=== PATIENT | female | born 1970 | race Caucasian/White ===

== ENCOUNTER → 2016-07-18 | Outpatient (CLI) | payer OTHER ==
[~2016-07-18] MED LIST: BCPILLS PO; CIPR-255 PO; HYDR-5688 PO; METR-163 PO; MINO100C22 PO; ONDA4TAB10 SL; SPIR50TA2 PO
--- NOTE | 2016-07-18 16:36 | MAMMOGRAPHY REPORT ---
BILATERAL DIGITAL SCREENING MAMMOGRAM TOMOSYNTHESIS WITH CAD: 07/18/2016 CLINICAL HISTORY: Routine screening. Patient has no complaints. TECHNIQUE: Breast tomosynthesis in addition to standard 2D mammography was performed. Current study was also evaluated with a Computer Aided Detection (CAD) system. COMPARISON: Comparison is made to exams dated: 09/06/2014 mammogram - [facility], mammogram, and 07/06/2013 mammogram - [facility]. BREAST COMPOSITION: The tissue of both breasts is heterogeneously dense, which may obscure small ma sses. FINDINGS: No suspicious masses, calcifications, or areas of architectural distortion are noted in e ither breast. There has been no significant interval change compared to prior exams. IMPRESSION: ACR BI-RADS CATEGORY 1: NEGATIVE There is no mammographic evidence of malignancy. A 1 year screening mammogram is recommended. The p atient will receive written notification of the results. Approximately 10% of breast cancers are not detected with mammography. A negative mammographic repor t should not delay biopsy if a clinically suggestive mass is present. Arianna Giles M.D. ah/:07/18/2016 15:28:03 Design Maintenance Engineer: Micheal Bah RT(R)(M), [facility] letter sent: Normal 1/2 BI-RADS Code: ACR BI-RADS Category 1: Negative
== END | disposition home or self-care (01) ==
LOC: C.MAMM 14:58
PROVIDERS: ATTEND Family Medicine
DX: Z12.31 Encounter for screening mammogram for malignant neoplasm of breast (principal)

== ENCOUNTER 2016-08-13 19:19 | Emergency (ER) | payer OTHER ==
[~2016-08-13] VITALS: Ht 162.6 cm; Wt 65.9 kg
[~2016-08-13 19:19] MED LIST changes: -CIPR-255 PO; -HYDR-5688 PO; -METR-163 PO; -MINO100C22 PO; -ONDA4TAB10 SL
[2016-08-13 19:23] VITALS: Ht 162.6 cm; Wt 65.9 kg
[2016-08-13] MEDS ORDERED: ONDANSETRON INJ 2 MG/ML 2 ML VIAL IV STA (19:42)
[2016-08-13] MEDS ORDERED: SODIUM CHLORIDE 0.9% 1000ML 1,000 ML IV STA ×2 (19:42)
[2016-08-13] MEDS ORDERED: OPTIRAY 320 IV PRN (20:00)
[2016-08-13 20:16] LABS: BASO % 0.2 %; BASO ABS # 0.02 K/uL (0-0.2); COMPLETE YES; EOS % 0.8 %; HEMATOCRIT 36.1 % (37-47); IG% 0.2 %; LYMPH % 14.1 %; LYMPH ABS # 1.29 K/uL (1.2-3.4); MEAN CORPUSCULAR HEMOGLOBIN 30.2 pg (25-34); MEAN CORPUSCULAR HGB CONC 34.3 g/dl (32-36); MEAN PLATELET VOLUME 10.3 fL (7.4-10.4); MONO % 8.2 %; NEUT % 76.5 %; PLATELET COUNT 261 K/uL (130-400); WHITE BLOOD COUNT 9.17 K/uL (4.8-10.8)
[2016-08-13 20:34] LABS: BUN/CREATININE RATIO 14.4 (10-20); CALCIUM 8.6 mg/dl (8.5-10.1); CREATININE 0.83 mg/dl (0.60-1.20); POTASSIUM 4.1 mmol/L (3.5-5.1)
[2016-08-13 20:37] LABS: ALB/GLOB RATIO 0.9 (0.9-2)
[2016-08-13] MEDS ORDERED: MINO100C22 PO (20:42)
--- NOTE | 2016-08-13 21:17 | DIAGNOSTIC IMAGING REPORT ---
ABDOMEN AND PELVIS CT WITH IV CONTRAST CT DOSE: 518.37 mGycm HISTORY: Pain. LEFT ABD PAIN, HX OF DIVERTICULITIS TECHNIQUE: Multiaxial CT images of the abdomen and pelvis were performed following the use of intravenous contrast. COMPARISON STUDY: 08/22/2014 FINDINGS: Lung bases are clear. Liver spleen and pancreas are unremarkable. Kidneys are negative for hydronephrosis. Prior cholecystectomy. Upper abdominal bowel pattern is unremarkable. There are findings of edematous change of the wall of the descending colon. This is seen primarily in the proximal to mid descending colon. There is most consistent with that of acute diverticulitis. There are bilateral ovarian cysts with small amount of free fluid within the pelvic cul-de-sac. On the right cyst measures 2.9 cm and on the left 3.2 cm. Bladder is midline. IMPRESSION: 1. Acute proximal to mid descending colonic diverticulitis. 2. Moderate pericolonic infiltrative change 3. No evidence for abscess collection or obstruction. 4. Bilateral ovarian cyst. Electronically signed by: Deep Smith M.D. 08/13/2016 9:15 PM Dictated Date/Time: 08/13/2016 9:07 PM
[2016-08-13] MEDS ORDERED: METRONIDAZOLE 250 MG TAB PO STA (21:40)
[2016-08-13] MEDS ORDERED: NORCO 5/325MG HOME PACK PO ONE (21:45)
[2016-08-13] MEDS ORDERED: HYDR-5688 PO (21:45)
[2016-08-13] MEDS ORDERED: METR-163 PO (21:45)
[2016-08-13] MEDS ORDERED: ONDA4TAB10 SL (21:45)
[2016-08-13] MEDS ORDERED: ONDANSETRON HOME PACK 4MG OD TAB PO ONE (21:45)
[2016-08-13] MEDS ORDERED: CIPROFLOXACIN 500MG HOME PACK PO ONE (21:45)
[2016-08-13] MEDS ORDERED: CIPR-255 PO (21:45)
--- NOTE | 2016-08-13 21:45 | EMERGENCY ROOM VISIT NOTE ---
History First contact with patient: 19:29 Chief Complaint: ABDOMINAL PAIN Stated Complaint: ABD PAIN,HX OF DIVERTICULITIS History of Present Illness Patient is a 45-year-old white female who presents emergency department for evaluation of left-sided abdominal pain 3-4 days. Patient has a history of diverticulitis and states that this feels similar. She states that she went for a headache on Thursday 3 days ago, that evening, she noted that she felt a little bloated, and thought that she could be constipated and a little dehydrated. She tried increasing her fluid intake and taking MiraLAX. She has subsequently had several bowel movements, last was last evening. She reports they were formed and brown without blood or melena. She denies any mucus. She states that the pain has progressively worsened. It is located primarily in the left midabdomen, but radiates across to the right. She feels better when she is laying still, and worse when she moves or bends over. She rates her discomfort a 7/10. She denies any fevers. No nausea or vomiting. Last menstrual period was 07/28 and was normal per the patient. She denies any urinary symptoms. She has had 2 prior episodes of diverticulitis, her last was in 2014. She has never had a colonoscopy. Review of Systems Review of systems as per HPI. All other systems reviewed were negative. 10 systems reviewed. Past Medical/Surgical History Medical Problems: (1) Diverticulitis (2) Diverticulosis (3) Scalp contusion (4) Vasovagal syncope (5) Vasovagal syncope Electronic medical records are reviewed and summarized as above/below. See Problem List. Social History Smoking Status: Never Smoker Alcohol Use: occasionally Housing Status: lives with family Occupation Status: employed Current/Historical Medications Scheduled Ciprofloxacin Hcl (Cipro), 500 MG PO BID Metronidazole (Flagyl), 500 MG PO BID Spironolactone (Aldactone), 50 MG PO BID Scheduled PRN Hydrocodone/Acetaminophen 5MG/325MG ([place] 5MG/325MG), 1-2 TABLETS PO Q4 PRN for Pain Minocycline (Minocin), 100 MG PO DAILY PRN for BREAKOUT Ondasetron Odt (Zofran Odt), 4 MG SL Q6H PRN for Nausea or Vomiting Allergies Coded Allergies: No Known Allergies (Unverified , 08/13/16) Physical Exam Vital Signs Date Time Temp Pulse Resp B/P Pulse Ox O2 Delivery O2 Flow Rate FiO2 08/13/16 21:29 86 18 136/72 99 Room Air 08/13/16 19:23 37.1 72 18 119/81 98 Room Air Physical Exam CONSTITUTIONAL: Patient is a pleasant, well-appearing 45-year-old white female who is awake and alert and in no acute distress. EYES: Pupils equal, round, reactive to light and accommodation. EOMs intact without nystagmus. Sclera are anicteric. ENT: Tympanic membranes intact, with normal landmarks. External canals are clear. Oral and nasopharynx are clear. Mucous membranes are moist, no lesions , tongue and gums appear normal. CARDIOVASCULAR: Regular rate and rhythm, with normal S1 and S2, no murmur or gallop or rub is heard. No carotid bruits auscultated. No JVD. Peripheral pulses easily palpable. RESPIRATORY: Breath sounds equal and clear to auscultation without wheezes, rales, or rhonchi heard. Full and equal chest expansion without accessory muscle use or retractions. ABDOMEN: Bowel sounds are present. Abdomen is soft, nondistended, tender to percussion and palpation in the left midabdomen without guarding, rebound or rigidity. There is no pain in the right lower quadrant over McBurney's point. INTEGUMENTARY: No lesions or rash, normal skin turgor. LYMPH: No lymphadenopathy. Medical Decision & Procedures ER Provider Diagnostic Interpretation: ABDOMEN AND PELVIS CT WITH IV CONTRAST CT DOSE: 518.37 mGycm HISTORY: Pain. LEFT ABD PAIN, HX OF DIVERTICULITIS TECHNIQUE: Multiaxial CT images of the abdomen and pelvis were performed following the use of intravenous contrast. COMPARISON STUDY: 08/22/2014 FINDINGS: Lung bases are clear. Liver spleen and pancreas are unremarkable. Kidneys are negative for hydronephrosis. Prior cholecystectomy. Upper abdominal bowel pattern is unremarkable. There are findings of edematous change of the wall of the descending colon. This is seen primarily in the proximal to mid descending colon. There is most consistent with that of acute diverticulitis. There are bilateral ovarian cysts with small amount of free fluid within the pelvic cul-de-sac. On the right cyst measures 2.9 cm and on the left 3.2 cm. Bladder is midline. IMPRESSION: 1. Acute proximal to mid descending colonic diverticulitis. 2. Moderate pericolonic infiltrative change 3. No evidence for abscess collection or obstruction. 4. Bilateral ovarian cyst. Laboratory Results 08/13/16 20:00 Red Blood Count 4.10, Mean Corpuscular Volume 88.0, Mean Corpuscular Hemoglobin 30.2, Mean Corpuscular Hemoglobin Concent 34.3, Mean Platelet Volume 10.3, Neutrophils (%) (Auto) 76.5, Lymphocytes (%) (Auto) 14.1, Monocytes (%) (Auto) 8.2, Eosinophils (%) (Auto) 0.8, Basophils (%) (Auto) 0.2, Neutrophils # (Auto) 7.02, Lymphocytes # (Auto) 1.29, Monocytes # (Auto) 0.75, Eosinophils # (Auto) 0.07, Basophils # (Auto) 0.02 08/13/16 20:00 Test 08/13/16 20:00 White Blood Count 9.17 K/uL (4.8-10.8) Red Blood Count 4.10 M/uL (4.2-5.4) Hemoglobin 12.4 g/dL (12.0-16.0) Hematocrit 36.1 % (37-47) Mean Corpuscular Volume 88.0 fL (80-100) Mean Corpuscular Hemoglobin 30.2 pg (25-34) Mean Corpuscular Hemoglobin Concent 34.3 g/dl (32-36) Platelet Count 261 K/uL (130-400) Mean Platelet Volume 10.3 fL (7.4-10.4) Neutrophils (%) (Auto) 76.5 % Lymphocytes (%) (Auto) 14.1 % Monocytes (%) (Auto) 8.2 % Eosinophils (%) (Auto) 0.8 % Basophils (%) (Auto) 0.2 % Neutrophils # (Auto) 7.02 K/uL (1.4-6.5) Lymphocytes # (Auto) 1.29 K/uL (1.2-3.4) Monocytes # (Auto) 0.75 K/uL (0.11-0.59) Eosinophils # (Auto) 0.07 K/uL (0-0.5) Basophils # (Auto) 0.02 K/uL (0-0.2) RDW Standard Deviation 41.8 fL (36.4-46.3) RDW Coefficient of Variation 12.9 % (11.5-14.5) Immature Granulocyte % (Auto) 0.2 % Immature Granulocyte # (Auto) 0.02 K/uL (0.00-0.02) Anion Gap 8.0 mmol/L (3-11) Est Creatinine Clear Calc Drug Dose 80.0 ml/min Estimated GFR () 98.7 Estimated GFR (Non- 85.2 BUN/Creatinine Ratio 14.4 (10-20) Calcium Level 8.6 mg/dl (8.5-10.1) Total Bilirubin 0.7 mg/dl (0.2-1) Aspartate Amino Transf (AST/SGOT) 15 U/L (15-37) Alanine Aminotransferase (ALT/SGPT) 31 U/L (12-78) Alkaline Phosphatase 53 U/L (45-117) Total Protein 7.3 gm/dl (6.4-8.2) Albumin 3.4 gm/dl (3.4-5.0) Globulin 3.9 gm/dl (2.5-4.0) Albumin/Globulin Ratio 0.9 (0.9-2) Lipase 132 U/L (73-393) Medications Administered Medications (Trade) Dose Ordered Sig/Edmar Route Start Time Stop Time Status Last Admin Dose Admin Sodium Chloride 1,000 ml @ 999 mls/hr Q1H1M STAT IV 08/13/16 19:42 08/13/16 20:42 DC 08/13/16 19:42 999 MLS/HR Sodium Chloride (Nss 1000ml) 1,000 ml @ 250 mls/hr Q4H STAT IV 08/13/16 19:42 08/13/16 23:41 08/13/16 19:42 250 MLS/HR Ondansetron HCl (Zofran Inj) 4 mg NOW STAT IV 08/13/16 19:42 08/13/16 19:44 DC 08/13/16 20:38 4 MG ED Course The patient was seen and evaluated as above. Her old records are reviewed. IV access was obtained and the patient was hydrated with normal saline solution and medicated with Zofran. She declined any medication for discomfort. CBC with differential, CMP, lipase, urine dip and urine test were performed. Given her history of diverticulitis, CT scan was performed. Laboratory studies noted a normal white count at 9100. No left shift or bandemia. H&H is normal. Electrolytes, renal functions, liver functions and lipase are all completely within normal limits. Urine dip was cleaned and test was negative. CT scan noted acute proximal to mid descending colonic diverticulitis with moderate pericolonic infiltrative change. No evidence for abscess or perforation. Bilateral ovarian cysts were noted. All laboratory and diagnostic imaging studies were discussed with the patient. Conservative care measures were discussed. Patient was in agreement. She'll be placed on Cipro and Flagyl and was given her first doses here in the emergency department. She was given [place] and Zofran to use for pain. She was instructed on the worrisome signs or symptoms for which she should return to the emergency department. Differential diagnoses entertained included UTI, pyelonephritis, renal colic, ovarian cyst, ovarian torsion, diverticulitis, bowel section, perforation, abscess, among others. Medical Decision See ED Course. Impression Primary Impression: Acute diverticulitis Departure Information Prescriptions Hydrocodone/Acetaminophen 5MG/325MG ([place] 5MG/325MG) Tab 1-2 TABLETS PO Q4 Y for Pain, #15 TAB For Initial Treatment Prov: Nancie Fox PA 08/13/16 Ondasetron Odt (ZOFRAN ODT) 4 Mg Tab 4 MG SL Q6H Y for Nausea or Vomiting, #20 TAB Prov: Nancie Fox PA 08/13/16 Metronidazole (Flagyl) 500 Mg Tab 500 MG PO BID, #20 TAB Prov: Nancie Fox PA 08/13/16 Ciprofloxacin Hcl (CIPRO) 500 Mg Tab 500 MG PO BID, #20 TAB Prov: Nancie Fox PA 08/13/16 Referrals Marisa Field DO (PCP) Patient Instructions My [facility] Additional Instructions Hydrocodone/Acetaminophen ([place]) 5/325 mg: Take 1-2 pills every four hours for breakthrough pain. Avoid alcohol, operating machinery or dangerous equipment, working on ladders or roofs, DRIVING, or situations where being under the influence may be dangerous. It is recommended to use an [id number] stool softener such as Colace, 100mg twice daily while taking this medication to avoid constipation. Ciprofloxacin(Cipro) 500mg: Take one pill twice daily for 10 days for your bowel infection. All antibiotics can cause diarrhea. If this occurs and you feel worse or it does not resolve in 1-2 days follow up with your doctor or return to the Emergency Department as this could be signs of serious underlying problems. If you experience any pain in your tendons/joints or any tendon injury return to the ER for re-evaluation. Any medication can cause an allergic reaction, stop the pills immediately and return to the ER for rash, hives, breathing difficulties, or swelling. Metronidazole(Flagyl) 500mg: Take one pill twice daily for 10 days for your bowel infection. DO NOT drink alcohol or take alcohol containing products with this medication. Any medication can cause an allergic reaction, stop the pills immediately and return to the ER for rash, hives, breathing difficulties, or swelling. Ibuprofen(Motrin, Advil) may be used for fever or pain. Use 600mg every six hours as needed. Take with food. Avoid using more than 2400mg in a 24 hour period. Do not use 2400mg per day for more than three consecutive days without physician direction. Prolonged inappropriate use can lead to stomach upset or ulcers. This is available over the counter and typically comes in 200mg tablets. (AND/OR) Acetaminophen(Tylenol) may be used for fever or pain. Use 1000mg every eight hours as needed. Avoid using more than 3000mg in a 24 hour period. This is available over the counter. Zofran(odansetron) tablets 4mg: Take one and allow it to dissolve in your mouth every four hours as needed for nausea or vomiting. Read all the package inserts or medication information paperwork provided. If you have any questions or concerns call your primary provider, pharmacist or the ER for assistance. Rest and drink plenty of fluids as tolerated. Slow sips of water or sports drinks are recommended instead of large amounts all at once. Continue current medications. Once your stomach is settled start with a clear liquid diet (jello, soup broth, etc.) and then advance as tolerated. You should avoid full, heavy meals for about 24 hrs from the time your symptoms resolved. Return to the ER immediately for worsening or persistent abdominal pain, vomiting, fevers, chest pains, difficulty breathing, black or bloody stools, worsening of your condition, or as needed. Follow up with your primary physician in 2-3 days for a recheck of your current condition.
[2016-08-13 22:22] VITALS: BP 136/72; PULSE 86; TEMP 37.1; O2SAT 99
== END 2016-08-13 22:22 | disposition home or self-care (01) ==
LOC: C.EDB 19:20 → C.EDC 22:22
DX: K57.92 Diverticulitis of intestine, part unspecified, without perforation or abscess without bleeding (principal); K57.90 Diverticulosis of intestine, part unspecified, without perforation or abscess without bleeding; N83.201 Unspecified ovarian cyst, right side; N83.202 Unspecified ovarian cyst, left side; Z87.828 Personal history of other (healed) physical injury and trauma

== ENCOUNTER → 2016-09-02 | Outpatient (CLI) | payer OTHER ==
[~2016-09-02] MED LIST changes: -BCPILLS PO; +CIPR-255 PO; +HYDR-5688 PO; +METR-163 PO; +MINO100C22 PO; +ONDA4TAB10 SL
== END | disposition home or self-care (01) ==
LOC: EDBD 13:37 → MERGE 13:37 → C.PAPS 13:37
PROVIDERS: ATTEND Physician Assistant
DX: Z12.4 Encounter for screening for malignant neoplasm of cervix (principal)

== ENCOUNTER → 2016-12-08 | Day surgery (SDC) | payer OTHER ==
[2016-11-17 14:02] VITALS: Ht 161.3 cm; Wt 63.6 kg
[2016-12-04 17:26] LABS: BASO % 0.3 %; BASO ABS # 0.02 K/uL (0-0.2); COMPLETE YES; EOS % 1.5 %; IG% 0.2 %; LYMPH % 38.1 %; MEAN CELL VOLUME 92.2 fL (80-100); MEAN CORPUSCULAR HGB CONC 33.6 g/dl (32-36); MEAN PLATELET VOLUME 9.6 fL (7.4-10.4); MONO % 5.6 %; NEUT % 54.3 %; PLATELET COUNT 320 K/uL (130-400); RED BLOOD COUNT 4.23 M/uL (4.2-5.4); WHITE BLOOD COUNT 6.57 K/uL (4.8-10.8)
[~2016-12-08] VITALS: Ht 161.3 cm; Wt 63.6 kg
[~2016-12-08] MED LIST changes: +ATROPINE SULFATE 0.1 MG/ML 5ML SYR IV PRN; -CIPR-255 PO; +DEXAMETHASONE SOD INJ 4 MG/ML VIAL ONE; +EpHEDrine SULFATE INJ 50 MG/ML AMP IV PRN; +FENTANYL CITRATE INJ 50 MCG/1 ML 2 ML VIAL IV PRN; +FENTANYL CITRATE INJ 50 MCG/1 ML 2 ML VIAL ONE; -HYDR-5688 PO; +KETOROLAC TROMETHAMINE 30 MG/ML VIAL ONE; +LACTATED RINGER'S 1000ML 1,000 ML IV SCH; +LIDOCAINE HCL 2% 2 ML VIAL (20MG/ML) ONE; -METR-163 PO; +MIDAZOLAM HCL 1 MG/ML 2ML VIAL ONE; -ONDA4TAB10 SL; +ONDANSETRON INJ 2 MG/ML 2 ML VIAL IV PRN; +ONDANSETRON INJ 2 MG/ML 2 ML VIAL ONE; +OXYCODONE/ACETAMINOPHEN 5-325 TAB PO PRN; +PROMETHAZINE HCL INJ 25 MG in SODIUM CHLORIDE 0.9% 50ML 50 ML IV PRN; +PROMETHAZINE HCL INJ 6.25 MG in SODIUM CHLORIDE 0.9% 50ML 50 ML IV PRN; +PROPOFOL IV EMULSION 10 MG/ML 20 ML VIAL IV ONE; +SODIUM CHLORIDE 0.9% 1000ML 1,000 ML IV SCH
--- NOTE | 2016-12-08 07:48 | History & Physical Bridge - SC ---
H&P Re-Evaluation Bridge Note: I have examined the patient, reviewed the History & Physical and in the interval since the performance of the History & Physical I have noted the following changes of clinical significance: No changes noted
--- NOTE | 2016-12-08 08:34 | [facility] Post Operative Brief Note ---
Immediate Operative Summary Operative Date Dec 08, 2016. Pre-Operative Diagnosis Endometrial Polyp Post-Operative Diagnosis Same Procedure(s) Performed Dilatation And Curettage, Hysteroscopy, Polypectomy with Myosure Surgeon Dr Akers Cord Splicer Surgeon(s) None Estimated Blood Loss 5ml Findings Uterus sounded to 8cm. Bilateral tubal ostia visualized. Endometrial polyp on posterior wall. Specimens A: Myosure Specimen & Endometrial Currettings Drains bladder drained prior to procedure Anesthesia general Complication(s) None Disposition Recovery Room / PACU
--- NOTE | 2016-12-08 08:37 | Discharge Instructions-SurgCtr ---
Discharge Instructions Date of Service Dec 08, 2016. Visit Reason for Visit: Endometrial Polyp Discharge Discharge Diagnosis / Problem: removal of endometrial polyp Discharge Goals Goal(s): Diagnostic testing, Therapeutic intervention Activity Recommendations Activity Limitations: per Instructions/Follow-up section Anesthesia . Post Anesthesia Instructions: If you have had General Anesthesia or IV Sedation: * Do not drive today. * Resume driving when surgeon permits. * Do not make important decisions or sign legal documents today. * Call surgeon for: 1. Temperature elevations greater than 101 degrees F. 2. Uncontrollable pain. 3. Excessive bleeding. 4. Persistent nausea and vomiting. 5. Medication intolerance (nausea, vomiting or rash). * For nausea and vomiting use only clear liquids such as: tea, soda, bouillon until nausea subsides, then gradually increase diet as tolerated. * If you have any concerns or questions, call your surgeon's office. If physician is unavailable and it is an emergency, call 911 or go to the nearest emergency room. . Instructions / Follow-Up Instructions / Follow-Up ACTIVITY RECOMMENDATIONS: * Avoid tampons, douching, hot tubs, pools, and intercourse until bleeding has stopped. * May shower as usual. * No strenuous activity for 24-48 hours. After 24-48 hours, you may do anything you feel like doing (driving and sports are okay). SPECIAL CARE INSTRUCTIONS: Special Diet: * Mild nausea may occur in the immediate post-operative period. * Take clear liquids such as tea, cola or bouillon until all nausea has subsided; you may then resume your normal diet. Special Care: * Light bleeding and vaginal spotting can last from a few days to 3-4 weeks. Call your doctor if bleeding becomes heavier than the heaviest part of your period. * Check your temperature twice a day for one week. If it goes above 100.4 degrees Fahrenheit (38.0 Celsius), notify your doctor. * Call your doctor's office for an appointment for 6 weeks after your surgery. FOLLOW-UP VISIT: Call your doctor's office for an appointment for 6 weeks after your surgery. Diet Recommendations Home Diet: resume previous diet Procedures Procedures Performed: Dilatation And Curettage, Hysteroscopy, Polypectomy with Myosure Pending Studies Studies pending at discharge: yes List of pending studies: pathology of endometrial curettings Medical Emergencies . Who to Call and When: Medical Emergencies: If at any time you feel your situation is an emergency, please call 911 immediately. . Non-Emergent Contact Non-Emergency issues call your: Primary Care Provider, [facility] . . "Provider Documentation" section prepared by Yue Akers. .
[2016-12-08 09:15] VITALS: TEMP 36.4
--- NOTE | 2016-12-08 09:33 | Anesthesia Progress Nt - [facility] ---
Anesthesia Post Op Note Date & Time Dec 08, 2016 at 09:33 Vital Signs Pain Intensity: 1 Vital Signs Past 12 Hours Date Time Temp Pulse Resp B/P (MAP) Pulse Ox O2 Delivery O2 Flow Rate FiO2 12/08/16 09:15 36.4 50 20 144/83 (103) 100 Room Air 12/08/16 09:10 130/86 12/08/16 09:09 58 12 12/08/16 09:09 57 12 97 12/08/16 09:08 63 13 12/08/16 09:08 65 13 97 12/08/16 09:07 36.8 98 Room Air 12/08/16 09:05 130/79 12/08/16 09:03 61 13 97 12/08/16 09:03 62 13 12/08/16 09:01 130/73 12/08/16 08:58 64 14 12/08/16 08:58 63 14 100 12/08/16 08:57 64 19 12/08/16 08:57 64 19 100 12/08/16 08:57 64 19 12/08/16 08:57 64 19 100 12/08/16 08:55 137/76 12/08/16 08:55 137/76 12/08/16 08:52 62 14 12/08/16 08:52 62 14 100 12/08/16 08:52 62 14 12/08/16 08:52 62 14 100 12/08/16 08:50 130/82 12/08/16 08:50 130/82 12/08/16 08:47 72 13 12/08/16 08:47 72 13 12/08/16 08:47 71 13 100 12/08/16 08:47 71 13 100 12/08/16 08:45 137/83 12/08/16 08:45 137/83 12/08/16 08:42 75 13 12/08/16 08:42 36.8 76 12 145/91 100 Mask 6 12/08/16 08:42 75 13 145/91 100 12/08/16 08:42 75 13 145/91 100 12/08/16 08:42 75 13 12/08/16 06:44 37.0 61 20 120/84 (96) 97 Room Air Notes Mental Status: alert / awake / arousable, participated in evaluation Pt Amnestic to Procedure: Yes Nausea / Vomiting: adequately controlled Pain: adequately controlled Airway Patency, RR, SpO2: stable & adequate BP & HR: stable & adequate Hydration State: stable & adequate Anesthetic Complications: no major complications apparent
[2016-12-08 09:50] VITALS: BP 118/76; PULSE 56; O2SAT 99
--- NOTE | 2016-12-08 11:07 | OPERATIVE REPORT ---
DATE OF OPERATION: 12/08/2016 PREOPERATIVE DIAGNOSIS: Endometrial polyp. POSTOPERATIVE DIAGNOSIS: Same. PROCEDURES PERFORMED: Hysteroscopy, dilation and curettage and polypectomy with MyoSure. SURGEON: Dr. Yue Akers. WATERMASTER: None. ESTIMATED BLOOD LOSS: 5 mL. FINDINGS: Uterus sounded to 8 cm. Bilateral tubal ostia visualized. Endometrial polyp on the posterior wall. SPECIMENS: Endometrial curettings both from MyoSure and curettage. DRAINS: Bladder emptied prior to procedure. ANESTHESIA: General. COMPLICATIONS: None. DISPOSITION: Stable and good to recovery room. INDICATIONS FOR PROCEDURE: The patient is a 45-year-old who had a known endometrial polyp as seen in the office on saline infusion sonogram. DESCRIPTION OF PROCEDURE: The patient was seen in the preoperative holding area where risks, benefits, and alternatives to surgery were reviewed. She elected to proceed with the case. Informed consent had previously been obtained in the office. She was taken to the operating room, where general anesthesia was introduced. She was then prepared and draped in the usual sterile fashion in the dorsal lithotomy position with feet in candy cane stirrups. A weighted speculum was placed in the vagina and the cervix was visualized. The anterior lip was grasped with a single tooth tenaculum. The uterus was sounded to 8 cm. The cervix was sequentially dilated to admit the MyoSure and hysteroscope. The scope was inserted. The cavity was viewed. Bilateral ostia were visualized as well as the posterior polyp. The MyoSure device was then used to perform polypectomy. The scope was withdrawn and a gentle curettage was undertaken with a sharp curette. These specimens were passed off to be sent to pathology. All instruments removed from the vagina. Excellent hemostasis was observed. The patient was awoken from anesthesia and taken to the postoperative recovery area in stable and good condition. I attest to the content of the Intraoperative Record and any orders documented therein. Any exception s are noted below.
== END | disposition home or self-care (01) ==
LOC: X.SURG 06:33
PROVIDERS: ATTEND Obstetrics & Gynecology
DX: N84.0 Polyp of corpus uteri (principal); K21.9 Gastro-esophageal reflux disease without esophagitis; Z79.899 Other long term (current) drug therapy

== ENCOUNTER → 2017-08-13 | Outpatient (CLI) | payer OTHER ==
[~2017-08-13] MED LIST changes: -ATROPINE SULFATE 0.1 MG/ML 5ML SYR IV PRN; -DEXAMETHASONE SOD INJ 4 MG/ML VIAL ONE; -EpHEDrine SULFATE INJ 50 MG/ML AMP IV PRN; -FENTANYL CITRATE INJ 50 MCG/1 ML 2 ML VIAL IV PRN; -FENTANYL CITRATE INJ 50 MCG/1 ML 2 ML VIAL ONE; -KETOROLAC TROMETHAMINE 30 MG/ML VIAL ONE; -LACTATED RINGER'S 1000ML 1,000 ML IV SCH; -LIDOCAINE HCL 2% 2 ML VIAL (20MG/ML) ONE; -MIDAZOLAM HCL 1 MG/ML 2ML VIAL ONE; -ONDANSETRON INJ 2 MG/ML 2 ML VIAL IV PRN; -ONDANSETRON INJ 2 MG/ML 2 ML VIAL ONE; -OXYCODONE/ACETAMINOPHEN 5-325 TAB PO PRN; -PROMETHAZINE HCL INJ 25 MG in SODIUM CHLORIDE 0.9% 50ML 50 ML IV PRN; -PROMETHAZINE HCL INJ 6.25 MG in SODIUM CHLORIDE 0.9% 50ML 50 ML IV PRN; -PROPOFOL IV EMULSION 10 MG/ML 20 ML VIAL IV ONE; -SODIUM CHLORIDE 0.9% 1000ML 1,000 ML IV SCH
== END | disposition home or self-care (01) ==
LOC: C.LABSPEC 17:31
PROVIDERS: ATTEND Physician Assistant
DX: Z30.430 Encounter for insertion of intrauterine contraceptive device (principal)